=== PATIENT | female | born 1960 | race Caucasian/White ===

== ENCOUNTER 2019-08-08 09:26 | Emergency (ER) | payer OTHER, SELFPAY ==
[2019-08-08 09:41] VITALS: BP 154/84; PULSE 76; RESP 16; TEMP 37.7; O2SAT 98
--- NOTE | 2019-08-08 09:50 | ED.GENADULT ---
HPI - General Adult General Chief complaint: Skin/Abscess/Foreign Body Stated complaint: Injury right leg Time Seen by Provider: 08/08/19 09:50 Source: patient and RN notes reviewed Mode of arrival: ambulatory Limitations: no limitations History of Present Illness HPI narrative: 59-year-old female presents with complaints of wound to RT lower-anterior leg with drainage, odor, redness, swelling, warmth, and tenderness for the past 2 days. Arpita says she initially had an little bump about a month ago in which she scratched that became irritated. She contacted her PMD office and was given Keflx for 2 weeks (completed approximately 1.5-2 weeks ago) with improvement. Area radiation of tenderness, redness, or swelling over the past 24 hours. No exacerbating factors. Denies calf pain. Denies fever or chills. Postmenopausal. Remains active. The patient reports she have not been diagnosed with COVID-19. The patient reports she is not waiting for the results of a COVID-19 lab test. The patient reports she do not have fever, chills, weakness, fatigue, or myalgia. The patient reports she do not have a new or worsening cough or shortness of breath. Denies chest pain. The patient reports she do not have any rhinorrhea, congestion, sore throat, nausea, vomiting, abdominal pain, and diarrhea. Tolerating po intake well. Denies recent traveling. Denies concerns for COVID-19 or exposures been home with limited outdoor exposure except for essential household needs, work, and return home. At this time, patient is not suspected of having COVID-19. Some parts of this dictation were generated by voice recognition software and may contain typographical and/or grammatical inaccuracies. Related Data Home Medications Medication Instructions Recorded Confirmed ergocalciferol (vitamin D2) 1,250 mcg PO MONTHLY 08/08/19 08/08/19 [Vitamin D2] hydroxychloroquine [Plaquenil] 200 mg PO BID 08/08/19 08/08/19 levothyroxine 125 mcg PO DAILY 08/08/19 08/08/19 losartan-hydrochlorothiazide 1 tablet PO DAILY 08/08/19 08/08/19 metoprolol succinate [Toprol XL] 50 mg PO DAILY 08/08/19 08/08/19 mycophenolate mofetil [CellCept] 500 mg PO BID 08/08/19 08/08/19 pantoprazole [Protonix] 40 mg PO DAILY 08/08/19 08/08/19 potassium chloride [Klor-Con M20] 20 meq PO BID 08/08/19 08/08/19 Allergies Allergy/AdvReac Type Severity Reaction Status Date / Time No Known Allergies Allergy Unknown Verified 08/08/19 09:48 Review of Systems Review of Systems: Narrative: CONSTITUTIONAL: Denies fever, chills, sweats. EYES: Denies visual changes, redness, discharge. ENT: Denies rhinorrhea, congestion, sore throat, otalgia. CARDIOVASCULAR: Denies chest pain, palpitations, edema. RESPIRATORY: Denies dyspnea, wheezing, cough. GASTROINTESTINAL: Denies abdominal pain, nausea, vomiting, diarrhea. GENITOURINARY: Denies dysuria, hematuria, abnormal discharge. SKIN: Complains of wound to RT lower-anterior leg with redness, swelling, warmth, and tenderness. MUSCULOSKELETAL: Denies acute back pain, joint pain, or myalgia. NEUROLOGIC: Denies numbness or focal weakness. PSYCHIATRIC: Denies anxiety or depression. All systems reviewed & are unremarkable except as noted in HPI and below. [facility] Past Medical History Medical History (Updated 08/09/19 @ 00:00 by [facility]) Blood transfusion without reported diagnosis delivery delivered Hypertension Lupus (systemic lupus erythematosus) Post-menopausal 5 years ago Surgical History Surgical History (Updated 08/08/19 @ 10:21 by LUCAS Neri) H/O section History of colonoscopy Family History Family History (Updated 08/08/19 @ 10:22 by LUCAS Neri) Father Family history of diabetes mellitus in first degree relative Heart disease Mother Hypertension Social History Social History (Updated 08/08/19 @ 10:23 by LUCAS Neri) Smoking status: Never smoker [place]
== END 2019-08-08 10:20 | disposition home or self-care (01) ==
PROVIDERS: Emergency Provider Nurse Practitioner Family; PCP Physician Assistant
DX: L03.115 Cellulitis of right lower limb (principal); I10 Essential (primary) hypertension
CPT/HCPCS: 87070; 87147; 87186; 87205; 99213; G0463

== ENCOUNTER 2020-01-14 09:30 | Outpatient (CLI) | payer OTHER, SELFPAY ==
--- NOTE | ~2020-01-14 | US_ITS ---
EXAMINATION: US venous doppler [facility] DATE: 01/14/2020 10:13 INDICATION: Left lower limb pain TECHNIQUE: Grayscale ultrasound images without and with compression and Doppler ultrasound images of the left lower extremity veins were obtained. COMPARISON: 01/12/15 FINDINGS: The visualized portions of left common femoral vein, profunda (deep) femoral vein, femoral vein, popl iteal vein, peroneal veins, posterior tibial veins and greater saphenous vein outflow are patent. IMPRESSION: 1. No deep venous thrombosis in the left lower limb. Reviewed, dictated and finalized at location A. [employer]
== END 2020-01-14 09:31 | disposition home or self-care (01) ==
PROVIDERS: PCP Physician Assistant; Visit Provider Physician Assistant
DX: M79.605 Pain in left leg (principal)
CPT/HCPCS: 93971

== ENCOUNTER 2020-08-04 09:47 | Outpatient (CLI) | payer OTHER, SELFPAY ==
--- NOTE | 2020-08-04 | ECHO_ITS ---
Patient Info Name: Arpita Pulido Age: 60 years : 1960 Gender: Female Ht: 61 in Wt: 250 lbs BSA: 2.28 m2 HR: 74 bpm BP: 179 / 93 mmHg Heart Rhythm: Sinus Rhythm Technical Quality: Fair Exam Date: 08/04/2020 10:24 AM Exam Location: [facility] Patient Status: Outpatient Admit Date: 08/04/2020 Staff Ordering Physician: LeathaKarol [employer] Superintendent: Ashleigh Cruz RDCS Attending Provider: Tasha, Karol HANLEY Referring Physician: Leatha ARECHIGA; Exam Type: CA echo doppler color flow Study Info Indications - diastolic dysfunction Complete two-dimensional, color flow and Doppler transthoracic echocardiogram is performed. Summary 1. Complete two-dimensional, color flow and Doppler transthoracic echocardiogram is performed. 2. Normal left ventricular thickness dimension and contractility. 3. Grade 1 diastolic noncompliance. 4. Mild left atrial enlargement. 5. Trivial MR. Left Ventricle Left ventricular chamber dimension is normal. Left ventricular systolic function is normal, estimated at 60-65%. The left ventricular diastolic function is grade I diastolic dysfunction. Right Ventricle Right ventricular chamber dimension is normal. Left Atria Left atrial chamber dimension is mildly enlarged. Right Atria Right atrial chamber dimension is normal. Aortic Valve The aortic valve is trileaflet. There is mild aortic valve sclerosis. Pulmonic Valve The pulmonic valve is normal. Mitral Valve The mitral valve has normal leaflets. There is trace mitral valve regurgitation. Tricuspid Valve The tricuspid valve leaflets are normal. There is mild tricuspid valve regurgitation. Mild pulmonary hypertension, estimated pulmonary arterial systolic pressure is 47 mmHg. Pericardium/Pleural The pericardium appears normal. Aorta The aortic root size at the sinus of Valsalva is normal. Left Ventricular Outflow Tract Name Value Normal LVOT 2D LVOT Diameter 2.2 cm LVOT Doppler LVOT Peak Gradient 6 mmHg LVOT Mean Gradient 4 mmHg LVOT VTI 27 cm LVOT VTI/AV VTI Ratio 0.6 LVOT Stroke Volume 100 ml LVOT CO 21.5 l/min LVOT CI 9.4 l/min/m2 Pulmonic Valve Name Value Normal PV Doppler PV Peak Gradient 3 mmHg Mitral Valve Name Value Normal MV Doppler MV Decel [place] 393 cm/s2 MV PHT 65 ms
== END 2020-08-04 09:48 | disposition home or self-care (01) ==
PROVIDERS: PCP Physician Assistant; Visit Provider Physician Assistant
DX: I51.9 Heart disease, unspecified (principal)
CPT/HCPCS: 93306

== ENCOUNTER 2022-05-17 09:43 | Outpatient (CLI) | payer OTHER, SELFPAY ==
--- NOTE | ~2022-05-17 | MM_ITS ---
EXAMINATION: MM screening tiffanie BI w thaddeus HISTORY: Screening mammogram TECHNIQUE: Craniocaudal and mediolateral oblique 3-D tomosynthesis images were obtained and synthetic 2-D images were generated. CAD analysis was submitted and interpreted. COMPARISON: 09/12/2018 bilateral screening mammogram examination BREAST PARENCHYMAL COMPOSITION: There are scattered areas of fibroglandular density. FINDINGS: There is no evidence of suspicious mass, calcification, or architectural distortion to sugg est malignancy in either breast. There has been no suspicious interval change. IMPRESSION: 1. No mammographic evidence of malignancy. 2. Recommend routine screening mammography in one year. BI-RADS Category 1: Negative Reviewed, dictated and finalized at location A.
== END 2022-05-17 09:44 | disposition home or self-care (01) ==
LOC: ANHIMG 09:45
PROVIDERS: PCP Physician Assistant; Visit Provider Physician Assistant
DX: Z12.31 Encounter for screening mammogram for malignant neoplasm of breast (principal)
CPT/HCPCS: 77063; 77067